=== PATIENT | male | born 1980 | race Caucasian/White ===

== ENCOUNTER 2018-11-21 19:59 | Emergency (ER) | payer OTHER, SELFPAY ==
[2018-11-21 20:00] VITALS: BP 150/91; PULSE 90; RESP 17; TEMP 36.9; O2SAT 97; BMI 26.8
[2018-11-21 21:11] VITALS: TEMP 37
--- NOTE | 2018-11-21 21:51 | CT_ITS ---
STUDY: CT BRAIN WITHOUT CONTRAST REASON FOR EXAM: Male, 38 years old. Sudden onset of headache yesterday. RADIATION DOSAGE (If Supplied By Facility): CTDIvol = ( 44.99 ) mGy, DLP = ( 812.98 ) mGycm TECHNIQUE: Transaxial CT imaging of the brain was performed without administration of intravenous contrast material. Individualized dose optimization techniques were used for this CT. COMPARISON: No prior examinations available for comparison. FINDINGS: Normal soft tissue structures. Normal calvarium. Normal size ventricles and extra-axial spaces for the patient's age. Normal white matter tracts of the cerebral hemispheres. Normal basal ganglia and thalami. Normal brainstem. Normal cerebellum. There is no intracranial hemorrhage. There are no findings of an acute ischemic infarction. There is complete opacification of the right maxillary sinus. CT/Brain/Head without Contrast IMPRESSION: 1. No acute intracranial process. 2. Right maxillary sinus disease. Electronically Signed: Arturo Barry MD at 23:20 EDT Tel , Service support ,
[2018-11-21] MEDS: 0.9% Normal Saline 1,000 ML 999 ML IV (22:00)
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
[2018-11-21] MEDS: Ketorolac 30 MG/ML Syringe IV (23:34)
[2018-11-21 23:41] VITALS: BP 136/82; PULSE 70; RESP 16; O2SAT 100
== END 2018-11-21 23:41 | disposition home or self-care (01) ==
PROVIDERS: Emergency Provider Emergency Medicine; Family Provider Family Medicine; PCP Family Medicine
DX: J32.0 Chronic maxillary sinusitis (principal); J32.1 Chronic frontal sinusitis; J32.2 Chronic ethmoidal sinusitis; Z72.0 Tobacco use
CPT/HCPCS: 70450; 96361; 96374; 99284; J7030